=== PATIENT | male | born 1965 | race Caucasian/White ===

== ENCOUNTER 2021-04-25 13:45 | Emergency (ER) | payer BC ==
[2021-04-25] MEDS ORDERED: Tetracaine HCl/PF 0.5% 4 ML Bottle EYERT ONE (15:39)
--- NOTE | 2021-04-25 15:45 | EDM.PDOC ---
ED HPI GENERAL MEDICAL PROBLEM - General Chief Complaint: ENT Problem Stated Complaint: RT EYE POSSIBLE INFECTION Time Seen by Provider: 04/25/21 15:40 Source of Information: Reports: Patient History Limitations: Reports: No Limitations - History of Present Illness INITIAL COMMENTS - FREE TEXT/NARRATIVE: pt has a very painful rt eye. He had an episode 2 weeks ago of pain and then it went away . He now has acute pain in the eye. He has not had a injury. Onset: Gradual Duration: Hour(s): Location: Reports: Face - Related Data Allergies Allergy/AdvReac Type Severity Reaction Status Date / Time No Known Allergies Allergy Verified 04/25/21 15:47 Home Meds: Home Meds amLODIPine [Norvasc] 1 tab PO DAILY 04/25/21 [History] ED ROS GENERAL - Review of Systems Review Of Systems: See Below Constitutional: Reports: No Symptoms HEENT: Reports: Eye Discharge, Eye Pain Respiratory: Reports: No Symptoms Cardiovascular: Reports: No Symptoms Endocrine: Reports: No Symptoms GI/Abdominal: Reports: No Symptoms : Reports: No Symptoms Musculoskeletal: Reports: No Symptoms, Muscle Pain ED EXAM, DIZZINESS - Physical Exam Exam: See Below Text/Narrative:: painful rt eye. No known injury. Exam Limited By: No Limitations General Appearance: Alert, Anxious, Mild Distress, Other ( eye is red inflamed and feels like he has something in the eye. He has no known injury. tetracaine was inserted in the eye. ) Ears: Normal TMs Nose: Nasal Deformity Throat/Mouth: Normal Inspection Course - Vital Signs Last Recorded V/S: Last Vital Signs Temp 36.6 C 04/25/21 15:53 Pulse 86 04/25/21 15:53 Resp 16 04/25/21 15:53 BP 138/87 04/25/21 15:53 Pulse Ox 98 04/25/21 15:53 - Orders/Labs/Meds Orders: Active Orders 24 hr Category Date Time Status Gentamicin [Gentak 0.3% Ophth Oint] Med 04/25/21 16:24 Once 1 gm EYERT TID ONE Meds: Medications Discontinued Medications Generic Name Dose Route Start Last Admin Trade Name Freq PRN Reason Stop Dose Admin Tetracaine HCl 1 ml 04/25/21 15:39 04/25/21 15:54 Tetracaine Hcl/Pf 0.5% 4 Ml Bottle EYERT 04/25/21 15:40 2 drop ASDIRECTED ONE Administration - Re-Assessments/Exams Free Text/Narrative Re-Assessment/Exam: 04/25/21 16:28 the eye was examined for any foreign bodies and none were seen. the eye was stained and he had a deep corneal abrasion in the mid upper portion. 04/25/21 16:30 tetracain was inserted and gentamycin ye ointment was inserted and the eye was patched. This will be left in place until tomorrow pm. Departure - Departure Time of Disposition: 16:31 Disposition: Home, Self-Care 01 Condition: Fair Clinical Impression: Corneal abrasion - Discharge Information Referrals: PCP,None [Primary Care Provider] - Forms: ED Department Discharge Care Plan Goals: leave the patch on until tomorrow afternoon. remove late tomorrow and then start the gentmycin eye drops tid, wear dark glasses to avoid lite exposure. If not better in 4 days see someone at the eye clinic Sepsis Event Note (ED) - Focused Exam Vital Signs: Vital Signs Temp Pulse Resp BP Pulse Ox 04/25/21 15:53 36.6 C 86 16 138/87 98 04/25/21 14:25 36.6 C 86 16 138/87 98 - My Orders Last 24 Hours: My Active Orders 04/25/21 16:24 Gentamicin [Gentak 0.3% Ophth Oint] 1 gm EYERT TID ONE - Assessment/Plan Last 24 Hours: My Active Orders 04/25/21 16:24 Gentamicin [Gentak 0.3% Ophth Oint] 1 gm EYERT TID ONE
== END 2021-04-25 16:57 | disposition home or self-care (01) ==
LOC: JP.ED 13:45
DX: S05.02XA Injury of conjunctiva and corneal abrasion without foreign body, left eye, initial encounter (principal); W22.8XXA Striking against or struck by other objects, initial encounter
CPT/HCPCS: 99282; 99283; A9270